=== PATIENT | female | born 1960 | race Caucasian/White ===

== ENCOUNTER 2016-07-21 08:34 | Emergency (ER) | payer SELFPAY ==
[2016-07-21] MEDS ORDERED: NO HOME MEDICATION XX (08:49)
[2016-07-21] MEDS ORDERED: ZOFRAN ODT4 MG PO (09:09)
== END 2016-07-21 09:25 ==
LOC: EDMED 08:34
DX: K29.70 Gastritis, unspecified, without bleeding (principal); K59.00 Constipation, unspecified; Z98.51 Tubal ligation status